=== PATIENT | male | born 1965 | race Caucasian/White ===

== ENCOUNTER → 2021-10-09 | Outpatient (CLI) | payer OTHER ==
[2021-10-10 08:13] LABS: ALPHA-1-ANTITRYPSIN, SERUM 109 mg/dL (101-187); HBSAG SCREEN Negative (Negative); HEP A AB, IGM Negative (Negative); HEP B CORE AB, IGM Negative (Negative); HEP C VIRUS AB <0.1 (0.0-0.9)
[2021-10-10 13:13] LABS: MITOCHONDRIAL (M2) ANTIBODY <20.0 Units (0.0-20.0)
== END ==
LOC: LAB 13:18
PROVIDERS: Internal Medicine Gastroenterology
DX: R94.5 Abnormal results of liver function studies (principal); K59.09 Other constipation
CPT/HCPCS: 36415; 74018; 80074; 80076; 82103; 82728; 86038

== ENCOUNTER → 2021-10-12 | Day surgery (SDC) | payer OTHER ==
[~2021-10-12] MED LIST: ETODOLAC200 MG PO; GABAPENTIN800 MG PO; OMEPRAZOLE20 MG PO; PANTOPRAZOLE SO20 MG PO; SIMVASTATIN20 MG PO; VENLAFAXINE HC150 MG PO; VENLAFAXINE HCL75 M1 PO
== END | disposition home or self-care (01) ==
LOC: OR 06:07
DX: K29.50 Unspecified chronic gastritis without bleeding (principal); K21.00 Gastro-esophageal reflux disease with esophagitis, without bleeding; K70.9 Alcoholic liver disease, unspecified; F10.10 Alcohol abuse, uncomplicated; E66.3 Overweight; E78.5 Hyperlipidemia, unspecified; Z68.28 Body mass index [BMI] 28.0-28.9, adult; Z79.899 Other long term (current) drug therapy; Z20.822 Contact with and (suspected) exposure to COVID-19
CPT/HCPCS: J2250; J2704; J7040

== ENCOUNTER → 2021-11-13 | Outpatient (CLI) | payer OTHER ==
[2021-11-14 16:11] LABS: LIVER-KIDNEY MICROSOMAL AB 1.1 Units (0.0-20.0)
== END ==
LOC: LAB 14:34
PROVIDERS: Internal Medicine Gastroenterology
DX: R10.10 Upper abdominal pain, unspecified (principal); K86.0 Alcohol-induced chronic pancreatitis; R19.7 Diarrhea, unspecified
CPT/HCPCS: 36415; 82150; 82784; 83516; 83690; 86376

== ENCOUNTER → 2021-11-14 | Outpatient (CLI) | payer OTHER | LOC: CT 15:00 | DX: K86.0 Alcohol-induced chronic pancreatitis (principal); R10.10 Upper abdominal pain, unspecified; R19.7 Diarrhea, unspecified; K76.0 Fatty (change of) liver, not elsewhere classified | CPT/HCPCS: 74160; Q9967 ==